=== PATIENT | female | born 1965 | race American Indian/Alaskan Native ===

== ENCOUNTER 2016-06-13 07:37 | Observation (INO) | payer OTHER ==
[2016-06-13] MEDS ORDERED: NACL 0.9% 500 ML 500 ML ONE (07:51)
[2016-06-13] MEDS ORDERED: ECOTRIN PO ONE ×2 (07:51→07:55)
[2016-06-13] MEDS ORDERED: NACL 0.9% 500 ML 500 ML IV SCH (08:00)
[2016-06-13 08:43] LABS: Basophils % (Auto) 0.2 % (0.0-1.8); Eosinophils % (Auto) 0.3 % (0.0-4.3); Hematocrit 37.3 % (30.3-42.9); Mean Corpuscular HGB Conc 32 % (30-34); Mean Corpuscular Hemoglobin 27 pg (28-32); Mean Corpuscular Volume 83 fl (79-97); Platelet Count 186 K/mm3 (140-440); White Blood Count 6.4 K/mm3 (4.5-11.0)
[2016-06-13 08:54] LABS: INR 0.9 (0.87-1.13)
[2016-06-13 08:55] LABS: Anion Gap 18 mmol/L; BUN/Creatinine Ratio 21.25; Blood Urea Nitrogen 17 mg/dL (7-17); Calcium 9.3 mg/dL (8.4-10.2); Carbon Dioxide 24 mmol/L (22-30); Chloride 95.8 mmol/L (98-107); Glucose 252 mg/dL (65-100); Potassium 4.1 mmol/L (3.6-5.0); Sodium 134 mmol/L (137-145)
[2016-06-13] MEDS ORDERED: HEPARIN/NS 5000 UNIT/500ML(CATH LAB) 1,000 ML IR ONE (09:14)
[2016-06-13] MEDS ORDERED: HEPARIN 10,000 UNITS/10 ML ONE (09:15)
[2016-06-13] MEDS ORDERED: NITROGLYCERIN SYRINGE 0 ML ONE (09:15)
[2016-06-13] MEDS ORDERED: XYLOCAINE 2% INFILTRATI ONE (09:15)
[2016-06-13] MEDS ORDERED: CALAN ONE (09:15)
[2016-06-13] MEDS ORDERED: SUBLIMAZE ONE (09:31)
[2016-06-13] MEDS ORDERED: VERSED ONE (09:31)
[2016-06-13] MEDS ORDERED: NACL 0.9% 100 ML ONE (10:04)
[2016-06-13] MEDS ORDERED: ANGIOMAX IV ONE (10:04)
[2016-06-13] MEDS ORDERED: NITROGLYCERIN SYRINGE 3 ML ONE (10:08)
[2016-06-13] MEDS ORDERED: AGGRASTAT DRIP (12.5 MG/250 ML) 12,500 MCG/250 ML BAG IV ONE (10:34)
[2016-06-13] MEDS ORDERED: EFFIENT PO ONE (10:43)
[2016-06-13] MEDS ORDERED: AGGRASTAT DRIP IV SCH (11:00)
--- NOTE | 2016-06-13 11:25 | Cardiac Catherization Report ---
LEFT HEART CATHETERIZATION/PERCUTANEOUS CORONARY INTERVENTION/INTRAVASCULAR ULTRASOUND REPORT CLINICAL INFORMATION: This is a 50-year-old female with known history of coronary artery disease, had a FFR of the proximal RCA in 2015 at 0.82, patent circumflex stent and nonobstructive LAD disease, has been treated medically on beta blockers and nitrates, has been having recurrent chest pain at rest and with exertion, despite a negative stress test is here for persistent symptoms. Left heart catheterization performed via the right femoral artery, sterile technique, local anesthesia, a 6-[place]ov[place] groin sheath inserted. PROCEDURE FINDINGS: Left main engaged with JR4 catheter, is a large caliber vessel, is patent, bifurcates into large caliber LAD, proximal diffuse 20 to 30%, rest of the LAD is patent with mild luminal irregularities. Diagonal 1, diagonal 2, small caliber vessel is patent. Ramus is a small caliber vessel, is patent. Circumflex and AV groove stent is widely patent. OM1 and OM2 are small caliber vessels that are patent. RCA proximal has a 90% lesion, mid 80% lesion. Distal is patent. PDA has a 50% lesion. PLV is a small caliber vessel, is patent. LV gram done in the ENGLISH and FUNES view shows normal LV function, LVEDP of 25 mm, EF approximately 55 to 60%. LV is 164, aortic is 160/98. No significant gradient across the aortic valve on pullback. PERCUTANEOUS CORONARY INTERVENTION OF THE RCA: 1. Engaged the RCA with an AR, moderate with side holes. 2. Crossed and distal PDA with a short Pioche wire. 3. Predilated proximal RCA with 2.5 x 8 balloon. 4. Intravascular ultrasound showed mid RCA focal lesion, MLA of less than 2.5 mm2 with distal reference vessel with 3.2 x 3.1 and proximal RCA same 3.1 x 3.2 mm. 5. Direct stented to the mid RCA crossed the RV branch with a drug-eluting Resolute 3.0 x 15 at 12 atmospheres. 6. Stented proximal RCA with a drug-eluting Resolute 3.0 x 12 at 15 atmospheres. 7. Repeat angiogram with excellent angiographic result with good stent apposition and expansion noted. No dissection or perforation noted. 8. A 6-Slovak guiding catheter taken over. 9. Coronary wire was removed. Continued angiogram showed continued DAMIAN 3 flow. No dissection or perforation and stent apposed. 10. A 6-Slov[place] guiding catheter taken over a guidewire, 6-Slov[place] groin sheath was sewn in. No hematoma. No bleeding. SUMMARY: 1. Successful PCI of the proximal and mid RCA with a drug-eluting Resolute 3.0 x 15 at 12 atmospheres across the RV branch, which is still patent, and proximal RCA with 3.0 x 12 at 15 atmospheres. The patient has mild nonobstructive disease and PDA around 50%. 2. Left main patent LAD approximately 20% circa stent patent. Small OM1 patent. 3. Normal LV function. 4. The patient post-PCI care will change Plavix to Effient. Effient 60mg loaded. Continue aspirin, statin, and diabetic medications. JOB# [id number] VI/IRENE WALL
--- NOTE | 2016-06-13 13:05 | Short Stay Summary ---
Short Stay Documentation Date of service: 06/13/16 - History H&P: obtained from office - Allergies and Medications Current Medications: Allergies amlodipine besylate [From [facility]] Allergy (Verified 03/26/14 03:44) Shortness of Breath shellfish derived Allergy (Verified 03/26/14 03:44) Shortness of Breath Home Medications Medication Instructions Recorded Confirmed Last Taken Type ISOSORBIDE MONOnitrate [Imdur ER] 30 mg PO DAILY 03/26/14 06/13/16 06/12/16 History Metoprolol [Lopressor TAB] 25 mg PO BID 03/26/14 06/13/16 06/12/16 History Aspirin [Aspirin TAB] 325 mg PO QDAY #30 tablet 03/27/14 06/13/16 06/12/16 Rx Clopidogrel [Plavix] 75 mg PO QDAY #30 tablet 03/27/14 06/13/16 06/13/16 Rx Insulin Detemir [Levemir VIAL] 10 unit SQ QHS 06/08/16 06/13/16 06/12/16 History AtorvaSTATin [Lipitor] 80 mg PO QHS #30 tablet 06/10/16 06/13/16 Unknown Rx Diphenhydramine HCl [Benadryl 25 mg PO Q8H #6 tablet 06/10/16 06/13/16 06/13/16 Rx Allergy TAB] Famotidine [Pepcid] 20 mg PO BID #4 tablet 06/10/16 06/13/16 06/13/16 Rx Lisinopril/Hydrochlorothiazide 1 tab PO QDAY #30 tablet 06/10/16 06/13/16 Rx [Zestoretic 20-25 mg] Nitroglycerin [Nitrostat] 0.4 mg SL Q5M PRN #30 tablet 06/10/16 06/13/16 Unknown Rx predniSONE [Deltasone] 60 mg PO BID #12 tablet 06/10/16 06/13/16 06/13/16 Rx Active Medications Aspirin (Ecotrin) 325 mg PO QDAY LIZZ Atorvastatin Calcium (Lipitor) 80 mg PO QHS LIZZ Famotidine (Pepcid) 20 mg PO BID LIZZ Heparin Sodium (Porcine) (Heparin) 5,000 unit SUB-Q Q8HR LIZZ Hydrochlorothiazide (Hctz) 25 mg PO QDAY LIZZ Sodium Chloride (Nacl 0.9% 500 Ml) 500 mls @ 50 mls/hr IV DIRECT LIZZ Stop: 06/13/16 17:59 Insulin Aspart (Novolog) 0 units SUB-Q ACHS LIZZ PRN Reason: Protocol Insulin Detemir (Levemir) 10 units SUB-Q QHS LIZZ Isosorbide Mononitrate (Imdur) 30 mg PO DAILY LIZZ Lisinopril (Zestril) 20 mg PO QDAY LIZZ Metoprolol Tartrate (Lopressor) 25 mg PO BID LIZZ Prasugrel (Effient) 10 mg PO QDAY LIZZ - Brief post op/procedure progress note Date of procedure: 06/13/16 Pre-op diagnosis: chest pain Procedure: left heart cath and PCI of proximal and mid RCA. - Hospital course Hospital course: The patient is a 50 year old female with known CAD s/p previous PCI who had been experiencing recurrent chest pain despite a recent negative stress test. She was referred for left heart cath for definitive diagnosis. She presented as an outpatient on 06/13/16 and underwent LHC via RFA by Dr. Becerra which revealed left main patent, 20-30% proximal LAD, diagonal 1 patent, diagonal 2 patent, ramus patent, LCX stent patent, OM1 and OM2 patent, proximal RCA 90%, mid RCA 80%, distal RCA patent, 50% PDA, PLV patent. She underwent PCI of the proximal (Resolute 3.0 x 12) and mid RCA (Resolute 3.0 x 15) with drug eluting stents. She was observed on telemetry overnight and remained chest pain free and hemodynamically stable. She will be discharged home today in stable condition. Follow up appointment with Dr. Becerra in the [place] office on at 2:30 pm. - Disposition Condition at discharge: Stable - Discharge Diagnoses (1) Chest pain Status: Resolved Qualifiers: Chest pain type: C (2) CAD (coronary artery disease) Status: Chronic Qualifiers: Coronary Disease-Associated Artery/Lesion type: C [place] vs. transplanted heart: N Associated angina: A (3) H/O percutaneous transluminal coronary angioplasty Status: Chronic (4) Diabetes Status: Chronic Qualifiers: Diabetes mellitus type: D Diabetes mellitus complication status: D Diabetes mellitus complication detail: D Diabetic retinopathy severity: D Proliferative retinopathy type: P Diabetes mellitus macular edema: D Diabetes mellitus group home insulin use: D Laterality: L Chronic kidney disease stage: C (5) Hyperlipidemia Status: Chronic Qualifiers: Hyperlipidemia type: H (6) HTN (hypertension) Status: Chronic Qualifiers: Hypertension type: H Short Stay Discharge Plan Activity: advance as tolerated Diet: low fat, low cholesterol, low salt, diabetic Wound: keep clean and dry Follow up with: PRIMARY CARE, [Primary Care Provider] - 7 Days JESSICA BECERRA MD [Staff Physician] - 07/01/16 2:30 pm ([place] [facility] [address] [place] [address], [address] [place] [address]) Forms: CardCat PCI D/C Instructions Prescriptions: Aspirin [Adult Low Dose Aspirin EC] 81 mg PO DAILY #30 tablet. Prasugrel [Effient] 10 mg PO QDAY #30 tablet
[2016-06-13] MEDS ORDERED: NORCO 5/325 ONE (15:12)
[2016-06-13] MEDS ORDERED: ULTRAM PO PRN (15:24)
[2016-06-13] MEDS ORDERED: NORCO 5/325 PO PRN (15:24)
--- NOTE | 2016-06-13 15:42 | Admit Criteria Form ---
<MICAH RODRIGUEZ - Last Filed: 06/13/16 21:46> Admission Criteria Documentation: TELEMETRY CARE Telemetry Admission Guidelines (Place 'X' for any and all applicable criteria): Admission to telemetry [A] may be indicated for ANY ONE of the following(1)(2)(3 )(4)(5): [X ]I. Cardiac disease, including ANY ONE of the following (9)(10)(11)(12)( 13): [ ]a) Postacute MT [ ]b) Low-risk patients with ST-segment elevation MT who have undergone successful percutaneous coronary intervention [ ]c) Unstable angina [ ]d) Suspected MT (until it is ruled out) [ ]e) Post cardiac surgery (first 48 to 72 hours unless complications occur) [ ]f) Acute arrhythmias (including significant tachycardia or bradycardia) [B] [ ]g) Firing of an implantable cardioverter defibrillator [C] [ ]h) Suspected pacemaker or implantable cardioverter defibrillator malfunction (10) [ ]i) New administration or adjustment of an antiarrhythmic drug [D ] [ ]j) Child admitted for acute congestive heart failure [ ]j) Long QT syndrome [ ]k) Advanced heart block (eg, second-degree Mobitz type II, third- degree heart block) [ ]l) Acute myocarditis or pericarditis [X ]m) Short-term (ambulatory or inpatient) monitoring after a cardiac procedure as indicated by ANY ONE of the following [E]: [ ]i) Electrophysiologic studies [X ]ii) Percutaneous coronary intervention with stent placement [ ]iii) Pacemaker placement with cardiac conduction defect [ ]iv) Implantable cardiac defibrillator placement [ ]II. Drug overdose or poisoning with substance that causes arrhythmias or QT prolongation (eg, phenothiazines, sympathomimetic agents, cyclic antidepressants, digitalis, antiarrhythmic drugs)(15) [ ]III. Short-term (ambulatory or inpatient) monitoring after therapeutic or diagnostic procedure requiring conscious sedation or anesthesia (eg, endoscopy, elective cardioversion) [ ]IV. Acute cerebrovascular even[F](18) [ ]V. Massive blood transfusion (eg, at least 10 units of packed red blood cells in 24 hours) [ ]. Variceal bleeding after endoscopy, sclerotherapy, or IV vasopressin [ ]VII. Uncorrected electrolyte abnormalities associated with an increased risk of dangerous arrhythmia [G]; examples include [ ]a) Hyperkalemia with attributable ECG changes [ ]b) Potassium greater than 6.5 mmol/L (mEq/L) in a patient without history of chronic renal disease [ ]c) Prolonged QT attributed to hypokalemia, hypomagnesemia, or hypocalcemia [ ]VIII.Unexplained syncope or other neurologic event suspected of being due to arrhythmia due to a finding that increases risk; examples include(19)(20)(21): [ ]a) High-risk ECG findings (eg, bifascicular block, bradycardia, abnormal QT interval, ventricular pre- excitation) [ ]b) History of previous syncope due to arrhythmia [ ]c) Abnormal ventricular function (eg, reduced ejection fraction ) [ ]d) Exertional or supine syncope [ ]e) Concerning syncope characteristics (eg, sudden loss of consciousness without prodrome) [ ]f) Family history of sudden [ ]g) Use of arrhythmogenic medication [ ]h) Suspected cardiac ischemia [ ]i) Known channelopathy (eg, long QT syndrome, Brugada syndrome, or catecholaminergic paroxysmal ventricular tachycardia) [ ]j) Known structural heart disease (eg, hypertrophic cardiomyopathy , severe valvular disease) [ ]k) Palpitations preceding syncope The original [employer] content created by [employer] has been revised. The portions of the content which have been revised are identified through the use of italic text or in bold, and [facility] [employer] has neither reviewed nor approved the modified material. All other unmodified content is copyright [employer]. Please see references footnoted in the original [facility] edition 2016 Admission Criteria Met: Yes <JESSICA BROWN - Last Filed: 06/14/16 09:39> Admission Criteria Met: Yes
[2016-06-13] MEDS ORDERED: NOVOLOG SUB-Q ONE (16:11)
[2016-06-13] MEDS: NOVOLOG SUB-Q SCH ×2 (18:41→21:59)
[2016-06-13] MEDS: HEPARIN SUB-Q SCH (21:58)
[2016-06-13] MEDS: LOPRESSOR PO SCH (21:59)
[2016-06-13] MEDS ORDERED: LEVEMIR SUB-Q SCH (22:00)
[2016-06-13] MEDS: PEPCID PO SCH (22:01)
[2016-06-14] MEDS: HEPARIN SUB-Q SCH (05:30)
[2016-06-14 05:54] LABS: Basophils % (Auto) 0.3 % (0.0-1.8); Eosinophils % (Auto) 0.3 % (0.0-4.3); Hematocrit 37.7 % (30.3-42.9); Hemoglobin 12.1 gm/dl (10.1-14.3); Mean Corpuscular HGB Conc 32 % (30-34); Mean Corpuscular Hemoglobin 26 pg (28-32); Mean Corpuscular Volume 82 fl (79-97); Platelet Count 184 K/mm3 (140-440); White Blood Count 7.1 K/mm3 (4.5-11.0)
[2016-06-14 06:14] LABS: Creatine Kinase MB 1.4 ng/mL (0.0-4.0)
[2016-06-14 06:22] LABS: Anion Gap 17 mmol/L; Blood Urea Nitrogen 16 mg/dL (7-17); Calcium 8.9 mg/dL (8.4-10.2); Carbon Dioxide 25 mmol/L (22-30); Chloride 100.2 mmol/L (98-107); Creatine Kinase 170 units/L (30-135); Glucose 154 mg/dL (65-100); Potassium 3.6 mmol/L (3.6-5.0); Sodium 139 mmol/L (137-145)
[2016-06-14] MEDS ORDERED: ZOFRAN ODT PO PRN (06:51)
--- NOTE | 2016-06-14 08:35 | XRay Report ---
AP CHEST: HISTORY: chest pain AP view of the chest demonstrates a normal mediastinal and cardiac contour with clear lungs and normal bony and soft tissue structures. IMPRESSION: Unremarkable AP chest.
[2016-06-14] MEDS ORDERED: IMDUR PO SCH (10:00)
[2016-06-14] MEDS ORDERED: EFFIENT PO SCH (10:00)
[2016-06-14] MEDS ORDERED: ZESTRIL PO SCH (10:00)
[2016-06-14] MEDS ORDERED: ECOTRIN PO SCH (10:00)
[2016-06-14] MEDS ORDERED: HCTZ PO SCH (10:00)
[2016-06-14] MEDS: NOVOLOG SUB-Q SCH ×2 (10:30→14:55)
[2016-06-14 10:59] VITALS: BP 132/83
[2016-06-14] MEDS: PEPCID PO SCH (11:04)
[2016-06-14] MEDS: LOPRESSOR PO SCH (11:04)
== END 2016-06-14 14:55 | disposition home or self-care (01) ==
LOC: OPU 07:37 → 4A 11:02
PROVIDERS: ADMIT Internal Medicine; ATTEND Internal Medicine
DX: I25.10 Atherosclerotic heart disease of native coronary artery without angina pectoris (principal); I10 Essential (primary) hypertension; E11.9 Type 2 diabetes mellitus without complications; G47.33 Obstructive sleep apnea (adult) (pediatric); R06.01 Orthopnea; E78.5 Hyperlipidemia, unspecified; R11.0 Nausea; Z98.61 Coronary angioplasty status
CPT/HCPCS: 36415; 71010; 80048; 82550; 82553; 82962; 84484; 85025; 85347; 85610; 85730; 92928; 92978; 93005; 93010; 93458; 96372; A9270; C1725; C1753; C1769; C1874; C1887; C1894; C9600; G0378; J0583; J1644; J2250; J3010; J3246; J7040; J1815; J1818; Q0162; Q9967